=== PATIENT | male | born 1980 | race American Indian/Alaskan Native ===

== ENCOUNTER 2017-04-12 12:25 | Inpatient (IN) | payer MEDICAID ==
[2017-04-12] MEDS ORDERED: Sodium Chloride 0.9% 1,000 ML IV STA (12:56)
[2017-04-12 13:15] LABS: BASO # 0.02 K/mm3 (0.0-2.0); BASO % 0.1 % (0.0-3.0); EOS % 0.1 % (1.5-5.0); GRAN # 12.85 (1.4-6.5); GRAN % 79.7 % (50.0-68.0); HEMATOCRIT 42.5 % (42.0-52.0); LYMPH # 2.7 (1.2-3.4); LYMPH % 16.5 % (22.0-35.0); MEAN CORPUSCULAR HEMOGLOBIN 33.6 pg (25.0-35.0); MEAN CORPUSCULAR HGB CONC 34.6 g/dl (31.0-37.0); MEAN PLATELET VOLUME 10.9 fl (7.0-11.0); MONO # 0.6 (0.1-0.6); MONO % 3.6 % (1.0-6.0); RED CELL DISTRIBUTION WIDTH 12.1 % (11.5-14.5); VENOUS BLOOD GAS BASE EXCESS -12.7 mmol/L (0.0-2.0); WHITE BLOOD COUNT 16.1 10^3/ul (4.5-11.0)
[2017-04-12] MEDS ORDERED: Sodium Chloride 0.9% 2,000 ML IV STA (13:20)
[2017-04-12 13:21] LABS: ALB/GLOB RATIO 1.5 (1.1-1.8); ALKALINE PHOSPHATASE 175 U/L (38-133); ALT/SGPT 45 U/L (7-56); AST/SGOT 43 U/L (15-59); BILIRUBIN,TOTAL 1.1 mg/dL (0.2-1.3); BLOOD UREA NITROGEN 24 mg/dL (7-21); CALCIUM 9.9 mg/dL (8.4-10.5); CARBON DIOXIDE 14 mmol/L (21-33); CHLORIDE 93 mmol/L (98-107); GFR AFRICAN-AMERICAN > 60; LIPASE 33 U/L (23-300); PHOSPHOROUS 4.8 mg/dL (2.5-4.5); POTASSIUM 5.1 mmol/L (3.6-5.0); SODIUM 133 mmol/L (132-148); TOTAL PROTEIN 7.7 g/dL (5.8-8.3)
--- NOTE | 2017-04-12 13:23 | ED PDOC ---
Arrival/HPI - General Chief Complaint: GI Problem Time Seen by Provider: 04/12/17 12:39 Historian: Patient - Critical Care Critical Care Minutes: 30 minutes - History of Present Illness Narrative History of Present Illness (Text): 04/12/17 13:20 A 36 year old male, whose past medical history includes type 1 diabetes, presents to the emergency department complaining of generalized fatigue and multiple episodes of non-bilious non-bloody vomiting since yesterday. Patient reports he forgot his insulin at home yesterday and was unable to take in until later at night. He reports that he had persistent vomiting. Patient notes a mild headache and non-bloody diarrhea but denies any fever, chills, abdominal pain, chest pain, shortness of breath, dizziness or any other complaints. 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 04/12/17 15:36 Time/Duration: Other (Yesterday) Symptom Course: Unchanged Quality: Other Context: Home, Work Past Medical History - Provider Review Nursing Documentation Reviewed: Yes - Infectious Disease Hx of Infectious Diseases: None - Cardiac Hx Cardiac Disorders: No - Pulmonary Hx Respiratory Disorders: No Hx Asthma: No Hx Chronic Obstructive Pulmonary Disease (COPD): No - Neurological Hx Neurological Disorder: No - HEENT Hx HEENT Disorder: No - Renal Hx Renal Disorder: No - Endocrine/Metabolic Hx Endocrine Disorders: Yes Hx Diabetes Mellitus Type 2: Yes - Hematological/Oncological Hx Blood Disorders: No - Integumentary Hx Dermatological Disorder: No - Musculoskeletal/Rheumatological Hx Musculoskeletal Disorders: No - Gastrointestinal Hx Gastrointestinal Disorders: No - Genitourinary/Gynecological Hx Genitourinary Disorders: No - Psychiatric Hx Psychophysiologic Disorder: No Hx Substance Use: No - Surgical History Hx Appendectomy: No - Anesthesia Hx Anesthesia: No Family/Social History - Physician Review Nursing Documentation Reviewed: Yes Family/Social History: No Known Family HX Smoking Status: Current Some Days Smoker Hx Alcohol Use: Yes Frequency of alcohol use: Socially Hx Substance Use: No Allergies/Home Meds Allergies/Adverse Reactions: Allergies No Known Allergies Allergy (Verified 04/12/17 12:39) Home Medications: Home Meds Medication Instructions Recorded Confirmed Insulin Lispro [humALOG] 20 unit SC TID 04/12/17 04/12/17 Review of Systems - Physician Review All systems were reviewed & negative as marked: Yes - Review of Systems Constitutional: Fatigue. absent: Fevers, Night Sweats Respiratory: absent: SOB Cardiovascular: absent: Chest Pain Gastrointestinal: Diarrhea, Vomiting. absent: Abdominal Pain Neurological: Headache. absent: Dizziness Physical Exam Vital Signs Reviewed: Yes Vital Signs Pulse Resp BP Pulse Ox 04/12/17 12:46 86 16 148/76 100 Blood Pressure: Normal Pulse: Regular Respiratory Rate: Normal Appearance: Positive for: Other (Fatigue, dehydrated) Pain Distress: None Mental Status: Positive for: Alert and Oriented X 3 Finger Stick Blood Glucose: 500 - Systems Exam Head: Present: Atraumatic, Normocephalic Pupils: Present: PERRL Extroacular Muscles: Present: EOMI Conjunctiva: Present: Normal Mouth: Present: Dry Pharnyx: No: ERYTHEMA, EXUDATE, TONSILS ENLARGED Neck: Present: Normal Range of Motion Respiratory/Chest: Present: Clear to Auscultation, Good Air Exchange. No: Respiratory Distress, Accessory Muscle Use Cardiovascular: Present: Regular Rate and Rhythm, Normal S1, S2. No: Murmurs Abdomen: Present: Normal Bowel Sounds. No: Tenderness, Distention, Peritoneal Signs Back: Present: Normal Inspection Upper Extremity: Present: Normal Inspection. No: Cyanosis, Edema Lower Extremity: Present: Normal Inspection. No: Edema Neurological: Present: GCS=15, CN II-XII Intact, Speech Normal Skin: Present: Warm, Dry, Normal Color. No: Rashes Psychiatric: Present: Alert, Oriented x 3, Normal Insight, Normal Concentration , Other (fatigue) Medical Decision Making ED Course and Treatment: 04/12/17 13:20 Impression: A 36 year old male with generalized fatigue and multiple episodes of non- bilious non-bloody vomiting since yesterday. Patient was unable to take his insulin yesterday. Patient notes mild headache and non-bloody diarrhea. Differential Diagnosis included but are not limited to: DKA Plan: -- Chest xray -- EKG -- Labs -- Urinalysis -- Tyelnol, Zofran and IV fluids -- Reassess and disposition Progress Notes: EKG shows NSR at 88 BPM with normal intervals, no ST/T changes. Interpreted by me. Report Date : 04/12/2017 14:02:08 Procedure: Chest xray Dictator : Lori Carvalho V. IMPRESSION: No active disease. 04/12/17 13:36 Lab results reviewed with pH of 7.2, PCO2 of 14 with Gap of 31 and sugar over 600 consistent with DKA. Case discussed with ICU attending who accepts patient for admission. Spoke with Dr. Jones who accepts patient to his service. Lactate elevated likely due to DKA. Patient has no other SIRS criteria and cxray negative. 2 liters of NS IVF infusing with insulin bolus and drip written. 04/12/17 15:38 - Lab Interpretations Lab Results: 04/12/17 13:07 04/12/17 13:07 Lab Results 04/12/17 13:07: Sodium 133, Chloride 93 L, Potassium 5.1 H, Carbon Dioxide 14 L , Anion Gap 31 H, BUN 24 H, Creatinine 1.2, Est GFR ( Amer) > 60, Est GFR (Non-Af Amer) > 60, Random Glucose 608 H*, Calcium 9.9, Phosphorus 4.8 H, Magnesium 2.0, Total Bilirubin 1.1, AST 43, ALT 45, Alkaline Phosphatase 175 H, Total Creatine Kinase 205, Troponin I < 0.01, Total Protein 7.7, Albumin 4.6, Globulin 3.1, Albumin/Globulin Ratio 1.5, Lipase 33 04/12/17 13:07: pO2 112 H, VBG pH 7.20 L, VBG pCO2 37.0 L, VBG HCO3 14.5 L, VBG Total CO2 15.6 L, VBG O2 Sat (Calc) 98.9 H, VBG Base Excess -12.7 L, VBG Potassium 5.4 H, Sodium 132.0, Chloride 90.0 L, Glucose 713 H*, Lactate 4.4 H*, FiO2 21.0, Venous Blood Potassium 5.4 H 04/12/17 13:07: WBC 16.1 H, RBC 4.38, Hgb 14.7, Hct 42.5, MCV 97.0, MCH 33.6, MCHC 34.6, RDW 12.1, Plt Count 231, MPV 10.9, Gran % 79.7 H, Lymph % (Auto) 16.5 L, Gaston % (Auto) 3.6, Eos % (Auto) 0.1 L, Baso % (Auto) 0.1, Gran # 12.85 H , Lymph # 2.7, Gaston # 0.6, Eos # 0.0, Baso # 0.02 I have reviewed the lab results: Yes - RAD Interpretation Radiology Orders: 04/12/17 13:20 CHEST PORTABLE [RAD] Stat - Medication Orders Current Medication Orders: Insulin Human Regular 100 (units/ Sodium Chloride) 100 mls @ 8 mls/hr IV .[id number] PRN; 8 UNITS/HR PRN Reason: TITRATE PER MD ORDER Last Admin: 04/12/17 14:08 Dose: 8 mls/hr Metronidazole (Flagyl) 500 mg in 100 mls @ 100 mls/hr IVPB Q8 YENNY PRN Reason: Protocol Ceftriaxone Sodium (Rocephin 1 Gram Ivpb) 1 gm in 100 mls @ 100 mls/hr IVPB DAILY YENNY PRN Reason: Protocol Pantoprazole Sodium (Protonix Inj) 40 mg IVP DAILY YENNY Discontinued Medications Acetaminophen (Tylenol 325mg Tab) 650 mg PO STAT STA Stop: 04/12/17 13:14 Last Admin: 04/12/17 13:37 Dose: 650 mg Sodium Chloride (Sodium Chloride 0.9%) 1,000 mls @ 999 mls/hr IV .Q1H1M STA Stop: 04/12/17 13:56 Last Admin: 04/12/17 13:14 Dose: 999 mls/hr Sodium Chloride (Sodium Chloride 0.9%) 2,000 mls @ 999 mls/hr IV .Q2H1M STA Stop: 04/12/17 15:20 Last Admin: 04/12/17 13:37 Dose: 999 mls/hr Piperacillin Sod/Tazobactam Sod (Zosyn 4.5 Gm In Ns 100ml) 4.5 gm in 100 mls @ 200 mls/hr IVPB STAT STA PRN Reason: Protocol Stop: 04/12/17 15:05 Last Admin: 04/12/17 15:20 Dose: 200 mls/hr Insulin Human Regular (Humulin R) 8 units IV STAT STA Stop: 04/12/17 13:33 Last Admin: 04/12/17 13:47 Dose: 8 units Ondansetron HCl (Zofran Inj) 4 mg IVP STAT STA Stop: 04/12/17 12:57 Last Admin: 04/12/17 13:14 Dose: 4 mg - Scribe Statement The provider has reviewed the documentation as recorded by the Trung Burr Provider Scribe Attestation: All medical record entries made by the Scribe were at my direction and personally dictated by me. I have reviewed the chart and agree that the record accurately reflects my personal performance of the history, physical exam, medical decision making, and the department course for this patient. I have also personally directed, reviewed, and agree with the discharge instructions and disposition. Disposition/Present on Arrival - Present on Arrival Any Indicators Present on Arrival: No History of DVT/PE: No History of Uncontrolled Diabetes: No Urinary Catheter: No History of Decub. Ulcer: No History Surgical Site Infection Following: Orthopedic Procedures - Disposition Have Diagnosis and Disposition been Completed?: Yes Diagnosis: DKA (diabetic ketoacidoses) Disposition: HOSPITALIZED Disposition Time: 12:46 Patient Plan: ICU Condition: CRITICAL
[2017-04-12 13:32] LABS: GLUCOSE,RANDOM 608 mg/dL (70-110)
[2017-04-12] MEDS ORDERED: Insulin Regular 1 UNITS/0.01 ML ML IV STA (13:32)
[2017-04-12] MEDS ORDERED: Insulin Regular 100 UNITS in Sodium Chloride 0.9% 99 ML IV PRN ×2 (13:32→16:42)
[2017-04-12 13:34] LABS: TROPONIN I < 0.01 ng/mL
--- NOTE | 2017-04-12 14:03 | RAD ---
HISTORY: hyperglycemia COMPARISON: No prior. FINDINGS: LUNGS: No active pulmonary disease. PLEURA: No significant pleural effusion identified, no pneumothorax apparent. CARDIOVASCULAR: Normal. OSSEOUS STRUCTURES: No significant abnormalities. VISUALIZED UPPER ABDOMEN: Normal. OTHER FINDINGS: None. IMPRESSION: No active disease.
[2017-04-12] MEDS ORDERED: Piperacill/Tazo 4.5gm in NS 4.5 GM/100 ML BAG IVPB STA (14:36)
[2017-04-12 15:26] LABS: URINE BILIRUBIN NEGATIVE (NEGATIVE); URINE BLOOD SMALL (NEGATIVE); URINE GLUCOSE (UA) >=1000 mg/dL (NEGATIVE); URINE KETONE >=80 mg/dL (NEGATIVE); URINE LEUKOCYTE ESTERASE NEGATIVE Leu/uL (NEGATIVE); URINE PROTEIN NEGATIVE mg/dL (<30 mg/dL); URINE UROBILINOGEN 0.2 E.U./dL (<1 E.U./dL)
[2017-04-12 15:27] LABS: URINE APPEARANCE CLEAR (CLEAR); URINE COLOR YELLOW (YELLOW)
--- NOTE | 2017-04-12 15:30 | CP.CCUPN ---
CCU Subjective - Physician Review Events Since Last Encounter (Free Text): 04/12/17 15:14 36 y/o M who presented with stuporious state and elevated blood sugar. Found to have DKA per the ER staff. Started on Insulin drip after Insulin bolus. IV fluids started 3 L ordered. Pt claims that he has been having abdominal pain, nausea and Vomiting x 2 days and missed his insulin dose x 24 hrs. The patient has been lethargic upon entry and is currently tired. CCU Objective - Physical Exam Head: Positive for: Atraumatic, Normocephalic Pupils: Positive for: PERRL Extroacular Muscles: Positive for: EOMI Conjunctiva: Positive for: Normal Mouth: Positive for: Dry Pharnyx: Negative for: ERYTHEMA, EXUDATE, TONSILS ENLARGED Neck: Positive for: Normal Range of Motion Respiratory/Chest: Positive for: Clear to Auscultation, Good Air Exchange. Negative for: Respiratory Distress, Accessory Muscle Use Cardiovascular: Positive for: Regular Rate and Rhythm, Normal S1, S2. Negative for: Murmurs Abdomen: Positive for: Normal Bowel Sounds. Negative for: Tenderness, Distention, Peritoneal Signs Back: Positive for: Normal Inspection Upper Extremity: Positive for: Normal Inspection. Negative for: Cyanosis, Edema Lower Extremity: Positive for: Normal Inspection. Negative for: Edema Neurological: Positive for: GCS=15, CN II-XII Intact, Speech Normal Skin: Positive for: Warm, Dry, Normal Color. Negative for: Rashes Psychiatric: Positive for: Alert, Oriented x 3, Normal Insight, Normal Concentration, Lethargic, Other (fatigue) - Medications Active Medications: Active Medications Generic Name Dose Route Start Last Admin Trade Name Freq PRN Reason Stop Dose Admin Sodium Chloride 2,000 mls @ 999 mls/hr 04/12/17 13:20 04/12/17 13:37 Sodium Chloride 0.9% IV 04/12/17 15:20 999 mls/hr .Q2H1M STA Administration Insulin Human Regular 100 100 mls @ 8 mls/hr 04/12/17 13:32 04/12/17 14:08 units/ Sodium Chloride IV 8 mls/hr .[id number] PRN Administration TITRATE PER MD ORDER 8 UNITS/HR - Patient Studies EKG/Cardiology Studies: Cardiology / EKG Studies 08/22/17 13:06 EKG [ELECTROCARDIOGRAM] Stat Comment: Reason For Exam: WEAKNESS Fingerstick Blood Sugar Results: 500 Review of Systems - Review of Systems Systems not reviewed;Unavailable: Altered Mental Status Critical Care Progress Note - Ventilator Checklist PUD Prophalyxis: Yes DVT Prophylaxis: Yes Assessment/Plan - Assessment and Plan (Free Text) Assessment: 36 y/o M presented with SIRS w/ Elevated Lactate. Source undetermined , possibly abd source. Elevated Alk Phos. US RUQ. May need Ct abd / pelvis Empiric abx to be started Zosyn 1 st dose given. Continue IV fluids NS 3L now and add as needed. Blood and urine cx sent. DKA protocol started. q 4 bmp, q1 hrs accuchecks and Insulin drip drip started. Replace K as it reaches 4 and change NS to D5W at BS 250. dvt P Heparin sq cc time 65 min
[2017-04-12 15:44] LABS: URINE BACTERIA MOD (NEG)
--- NOTE | 2017-04-12 15:56 | US ---
HISTORY: abdominal pain and elevated alk phos COMPARISON: None. TECHNIQUE: Sonographic evaluation of the abdomen. FINDINGS: LIVER: Measures 18.4 cm. Normal echogenicity of the liver parenchyma. No mass. No intrahepatic bile duct dilatation. GALLBLADDER: Unremarkable. No gallstones. COMMON BILE DUCT: Measures 5.3 mm. No stones. No dilatation. PANCREAS: Unremarkable as visualized. No mass. No ductal dilatation. RIGHT KIDNEY: Measures 11.0 x 4.7 x 5.2cm. Normal echogenicity. No calculus, mass, or hydronephrosis. LEFT KIDNEY: Measures 10.6 x 4.3 x 5.4cm. Normal echogenicity. No calculus, mass, or hydronephrosis. SPLEEN: Normal in size and contour. No mass. AORTA: No aneurysmal dilatation. IVC: Unremarkable. OTHER FINDINGS: None. IMPRESSION: Mild hepatomegaly. Otherwise unremarkable exam
--- NOTE | 2017-04-12 16:01 | CP.PCM.HP ---
<JESSICA ALVAREZ - Last Filed: 04/12/17 15:41> History of Present Illness - History of Present Illness History of Present Illness: CC: Abdominal pain, nausea, vomiting HPI: Pt is a 36 yo M with PMHx of DM type 1 who complains of a 2 day history of nausea, NBNB vomiting x3-4 episodes, and abdominal pain. Pt also reports polydipsia, polyuria, diarrhea, SOB, and chills x 1 day. Pt is currently on Humalog 20 units TID and Basaglar 35 units at bedtime, but did not take any of his insulin for the past 24 hrs because forgot them at home when he went to work. Pt states that he checks his blood glucose at home which is generally around 120 in the mornings and varies throughout the day from the high 100's to low 200's. Pt was diagnosed with DM type I 9-years ago and denies any history of DKA. Pt was found to be lethargic on interview/examination. Pt denies CP, SOB , fever, melena, BRBPR, dysuria, or hematuria. 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 Willy Paz Council Member: Dr. Hadley Present on Admission - Present on Admission Any Indicators Present on Admission: No Review of Systems - Review of Systems All systems: reviewed and no additional remarkable complaints except (12 Point ROS negative other than what is stated in HPI) Past Patient History - Infectious Disease Hx of Infectious Diseases: None - Past Social History Smoking Status: Current Some Days Smoker - CARDIAC Hx Cardiac Disorders: No - PULMONARY Hx Respiratory Disorders: No Hx Asthma: No Hx Chronic Obstructive Pulmonary Disease (COPD): No - NEUROLOGICAL Hx Neurological Disorder: No - HEENT Hx HEENT Problems: No - RENAL Hx Chronic Kidney Disease: No - ENDOCRINE/METABOLIC Hx Endocrine Disorders: Yes Hx Diabetes Mellitus Type 2: Yes - HEMATOLOGICAL/ONCOLOGICAL Hx Blood Disorders: No - INTEGUMENTARY Hx Dermatological Problems: No - MUSCULOSKELETAL/RHEUMATOLOGICAL Hx Musculoskeletal Disorders: No - GASTROINTESTINAL Hx Gastrointestinal Disorders: No - GENITOURINARY/GYNECOLOGICAL Hx Genitourinary Disorders: No - PSYCHIATRIC Hx Psychophysiologic Disorder: No Hx Substance Use: No - SURGICAL HISTORY Hx Appendectomy: No - ANESTHESIA Hx Anesthesia: No Meds Allergies/Adverse Reactions: Allergies Allergy/AdvReac Type Severity Reaction Status Date / Time No Known Allergies Allergy Verified 04/12/17 12:39 Physical Exam - Constitutional Additional comments: Lethargic - Head Exam Head Exam: ATRAUMATIC, NORMOCEPHALIC - Eye Exam Eye Exam: EOMI, PERRL Additional comments: No conjunctival pallor - ENT Exam ENT Exam: Mucous Membranes Dry - Neck Exam Neck exam: Positive for: Full Rom. Negative for: Lymphadenopathy, Tenderness, Thyromegaly - Respiratory Exam Respiratory Exam: Clear to Auscultation Bilateral. absent: Rales, Rhonchi, Wheezes - Cardiovascular Exam Cardiovascular Exam: RRR, +S1, +S2. absent: Gallop, Rubs, Systolic Murmur - GI/Abdominal Exam GI & Abdominal Exam: Soft, Tenderness. absent: Distended, Guarding, Organomegaly, Rebound, Rigid - Extremities Exam Extremities exam: Positive for: normal inspection - Back Exam Back exam: NORMAL INSPECTION - Neurological Exam Neurological exam: Alert, Oriented x3 - Skin Skin Exam: Dry, Intact, Normal Color, Warm Results - Vital Signs Recent Vital Signs: Last Vital Signs Temp Pulse 86 04/12/17 12:46 Resp 16 04/12/17 12:46 BP 148/76 04/12/17 12:46 Pulse Ox 100 04/12/17 12:46 - Labs Result Diagrams: 04/12/17 13:07 04/12/17 13:07 Labs: Laboratory Results - last 24 hr 04/12/17 15:08 Urine Color Yellow Urine Appearance Clear Urine pH 6.0 Ur Specific Mccoll 1.015 Urine Protein Negative Urine Glucose (UA) >=1000 Urine Ketones >=80 Urine Blood Small H Urine Nitrate Negative Urine Bilirubin Negative Urine Urobilinogen 0.2 Ur Leukocyte Esterase Negative Assessment & Plan - Assessment and Plan (Free Text) Assessment: 36 yo M with PMHx DM type I admitted for evaluation and treatment for diabetic ketoacidosis. Plan: 1. Diabetic Ketoacidosis - Admitted inpatient to ICU - Anion Gap 26, Lactate 4.4, pH 7.2, HCO3 14.5 - Insulin drip at 8 units/hr - NS 3L bolus - Glucose 608 and K 5.1 on admission - Check glucose Q4H - Check potassium Q4H, monitor for hypokalemia - Zofran PRN for nausea/vomiting - NPO - F/u drug screen, ETOH level, Lactic acid - Endocrine consulted 2. Leukocytosis - WBC 16.1, cont to trend - UA positive for Trichomonas - Abd showed mild hepatomegaly; CXR negative - Lipase 33 - Flagyl 500 mg IVPB Q8H covers trichomonas - Zosyn x1 in ED - Ceftriaxone 1 gm IVPB daily - F/u blood and urine cultures GI/DVT PPx - Protonix - SCDs Pt seen and discussed in detail with Dr. Jones. <Evelyn Jones - Last Filed: 04/12/17 16:42> Results - Vital Signs Recent Vital Signs: Last Vital Signs Temp Pulse 86 04/12/17 12:46 Resp 16 04/12/17 12:46 BP 148/76 04/12/17 12:46 Pulse Ox 100 04/12/17 12:46 - Labs Result Diagrams: 04/12/17 13:07 04/12/17 13:07 Labs: Laboratory Results - last 24 hr 04/12/17 04/12/17 14:13 15:08 POC Glucose (mg/dL) 413 H* Urine Color Yellow Urine Appearance Clear Urine pH 6.0 Ur Specific Mccoll 1.015 Urine Protein Negative Urine Glucose (UA) >=1000 Urine Ketones >=80 Urine Blood Small H Urine Nitrate Negative Urine Bilirubin Negative Urine Urobilinogen 0.2 Ur Leukocyte Esterase Negative Urine RBC 1 - 3 Urine WBC 2 - 5 Ur Epithelial Cells 3 - 4 Urine Bacteria Mod Urine Other Trichomonas Attending/Attestation - Attestation I have personally seen and examined this patient.: Yes I have fully participated in the care of the patient.: Yes I have reviewed all pertinent clinical information: Yes Notes (Text): 04/12/17 16:38 36 year old male with past medical history of type 1 diabetes who presents with complaint of abdominal pain with nausea/vomiting after not taking his insulin for the past 1 day. He was found to be in DKA with anion gap of 26. Will admit to ICU. Continue with iv fluids and insulin drip. Will obtain serial labs and fingersticks. Endocrinology evaluation was also requested. GI complaints and leukocytosis likely secondary to above. CXR was negative. UA shows trichomonas. Patient is started on empiric antibiotics for now. Abdominal ultrasound showed mild hepatomegaly. Will monitor clinically and follow up on cultures. Evelyn Jones MD Hospitalist.
[2017-04-12 16:58] LABS: VENOUS BLOOD GAS BASE EXCESS -6.3 mmol/L (0.0-2.0)
[2017-04-12] MEDS ORDERED: cefTRIAXone 1 gm 1 GM/100 ML BAG IVPB SCH (17:00)
[2017-04-12] MEDS: cefTRIAXone 1 gm in NS 100ml IVPB SCH (17:22)
[2017-04-12] MEDS ORDERED: Sodium Chloride 0.9% 1,000 ML IV SCH (17:30)
[2017-04-12] MEDS ORDERED: ALUMINUM HYDROXIDE PO PRN (18:33)
[2017-04-12] MEDS ORDERED: MAGNESIUM CARBONATE PO PRN (18:33)
[2017-04-12 19:05] LABS: BLOOD UREA NITROGEN 21 mg/dL (7-21); CALCIUM 8.8 mg/dL (8.4-10.5); CARBON DIOXIDE 19 mmol/L (21-33); CHLORIDE 107 mmol/L (98-107); GFR AFRICAN-AMERICAN > 60; GLUCOSE,RANDOM 172 mg/dL (70-110); POTASSIUM 4.1 mmol/L (3.6-5.0); SODIUM 139 mmol/L (132-148)
--- NOTE | 2017-04-12 19:10 | CARD ---
APPROVED REPORT EKG Measurement Heart [id number] <Conclusion> Normal sinus rhythm Right atrial enlargement Borderline ECG
[2017-04-12 19:19] VITALS: BMI 23.6
[2017-04-12] MEDS ORDERED: Pneumococcal 23-Valent Vaccine IM ONE (19:19)
[2017-04-12] MEDS ORDERED: Insulin Detemir 100 units/ml Vial (Levemir) SC ONE (19:21)
[2017-04-12] MEDS: Dextrose 5%/0.9% NS 1,000 ML IV SCH (19:55)
[2017-04-12] MEDS: Potassium Chloride 40 mEq/30 ml LIQ UD PO ONE ×2 (20:29→22:25)
[2017-04-12] MEDS: Alum-Mag Hydrox-Simethicone Susp (30 mL) PO PRN (20:43)
[2017-04-12] MEDS ORDERED: Potassium Chloride 20 mEq ER Tab PO ONE (21:16)
[2017-04-12] MEDS ORDERED: Insulin Reg-HIGH-Coverage SC SCH (22:00)
[2017-04-12 22:11] LABS: BLOOD UREA NITROGEN 18 mg/dL (7-21); CALCIUM 8.6 mg/dL (8.4-10.5); CARBON DIOXIDE 22 mmol/L (21-33); CHLORIDE 106 mmol/L (95-110); GFR AFRICAN-AMERICAN > 60; GLUCOSE,RANDOM 131 mg/dL (70-110); POTASSIUM 4.4 mmol/L (3.6-5.0); SODIUM 137 mmol/L (132-148)
[2017-04-12] MEDS: metroNIDAZOLE IV 500 mg/100 ml 500 MG/100 ML BAG IVPB SCH (22:27)
[2017-04-12] MEDS ORDERED: Insulin Detemir 100 units/ml Vial (Levemir) SC STA (22:30)
[2017-04-13] MEDS: Alum-Mag Hydrox-Simethicone Susp (30 mL) PO PRN ×2 (00:46→05:00)
[2017-04-13 02:28] LABS: CALCIUM 8.5 mg/dL (8.4-10.5); CARBON DIOXIDE 25 mmol/L (21-33); CHLORIDE 107 mmol/L (95-110); GLUCOSE,RANDOM 111 mg/dL (70-110); POTASSIUM 3.7 mmol/L (3.6-5.0); SODIUM 137 mmol/L (132-148)
--- NOTE | 2017-04-13 02:30 | CON ---
ENDOCRINOLOGY CONSULTATION LOCATION: [facility]U 128, room 6. HISTORY OF PRESENT ILLNESS: This is a 56-year-old male with known history of type 1 insulin-dependent diabetes, presenting here with intractable nausea, dyspepsia and vomiting and upper abdominal pain and is now being referred for diabetic evaluation because of supervening diabetic ketoacidosis and dehydration. PAST MEDICAL HISTORY: History of type 1 insulin-dependent diabetes on a combination of Humalog given as 20 units subcu t.i.d. before meals with Basaglar given as 35 units at bedtime daily. He apparently forgot his insulin regiment at home and was unable to administer his insulin dosing at work and developed progressively worsening nausea, dyspepsia and vomiting episodes with upper abdominal pain prompting this ER consult and subsequent admission. History of hypertension and dyslipidemia. FAMILY HISTORY: Positive for diabetes and hypertension. SOCIAL HISTORY: The patient has supportive family, smoke a few cigarettes a day and drinks alcohol socially. 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 REVIEW OF SYSTEMS: As mentioned above. Admits to generalized body weakness with easy fatigability and tiredness and suboptimal energy level. Also admits to progressive bouts of dizziness and lightheadedness, worse on the day of the admission. No chest pains, palpitations or PND. His oral intake is variable with nausea, dyspepsia and intractable vomiting episodes with supervening diarrhea and upper abdominal pain. Also admits to progressive polyuria, nocturia and polydipsia, worse on the day of admission. PHYSICAL EXAMINATION: GENERAL: This is an average built male in no apparent distress. VITAL SIGNS: Blood pressure of 140/80, pulse of 70 beats per minute and regular, temperature 98, respirations 20, height is 5 feet 9 inches and weight is 160 pounds. HEENT: Head is normocephalic. Eyes are anicteric with pink conjunctivae. Funduscopy not possible at this time. Ears, nose, and throat are otherwise normal. NECK: Supple. Thyroid gland is normal sized. No carotid bruits or any cervical adenopathy. CARDIOPULMONARY: Adynamic precordium. S1 and S2 is rapid and regular. LUNGS: Shows carotid rhonchi. ABDOMEN: Flat and soft with active bowel sounds. EXTREMITIES: No peripheral edema. Pulses are +2 bilaterally. LABORATORY DATA: His initial chemistry showed a BUN of 24, sodium 133, potassium 5.1, chloride 93, CO2 is 14, glucose is 608 and creatinine is 1.2. The subsequent glucose level is 413 mg/dL. ASSESSMENT: This is a 36-year-old male with uncontrolled and decompensated type 1 insulin-dependent diabetes presenting here with diabetic ketoacidosis an dehydration related to recent drug omission of his insulin regimen as noted. PLAN: Plan of management as discussed with the patient and staff. We will continue the insulin drip infusion with hourly fingerstick glucose testing and also hourly dose titration of his insulin drip infusion as given. We will continue intensive insulin therapy and at least above 18 to 20 overnight as expected. We will also continue the vigorous IV hydration to replenish the lost fluid and electrolytes as noted. We will obtain serum chemistries and supplement accordingly as needed. We will also initiate dietary education and dietary instructions at the time of this admission. We will follow and advise accordingly. Lizy Mustafa MD
[2017-04-13 02:34] LABS: BLOOD UREA NITROGEN 19 mg/dL (7-21); GFR AFRICAN-AMERICAN > 60
--- NOTE | 2017-04-13 03:00 | HP ---
HISTORY OF PRESENT ILLNESS: I am on-call for the [facility] and they called me down to take a look at him. He is not doing well. He is going to the intensive care unit. He is a 36-year-old man who had nausea, vomiting, 3 to 4 episodes of abdominal pain, increase in urination, diarrhea, shortness of breath and chills that has been going on for about a day, 24 hours. He is a diabetic. He has done this before. He did not take any insulin for the past 24 hours, he forgot when he went to work and he felt that the blood sugars went high and he ended up being in the ER with high blood sugars and DKA. PAST MEDICAL HISTORY: History of type 1 diabetes. PAST SURGICAL HISTORY: He denies any surgical history. MEDICATIONS: He takes Humulin 20 units 3 times a day and Basaglar 35 units at bedtime. ALLERGIES: NO KNOWN DRUG ALLERGIES. FAMILY HISTORY: Grandfather had diabetes. SOCIAL HISTORY: He smokes cigarettes. He smokes marijuana. He drinks alcohol. 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 He lives in [place]. He is not feeling well. REVIEW OF SYSTEMS: No acute vision issues or hearing issues. No sore throat. No neck pain. No chest pain or palpitations. No shortness of breath, coughing or mucus. He does have abdominal pain and nauseousness. He has vomiting. He has some diarrhea. No back pain. No anxiety or depression. No numbness or chills. No weakness in the legs. No swelling. PHYSICAL EXAMINATION: VITAL SIGNS: He has a 98.6 temp, 85 pulse, 126/64 blood pressure, 18 respiratory rate and 100% O2 sat on room air. HEENT: Head is atraumatic and normocephalic. Extraocular muscles are intact. Pupils equal and reactive to light and accommodation. Throat is moist. NECK: Supple. HEART: Regular rate, normal S1 and S2. LUNGS: Clear to auscultation bilaterally. No rhonchi, rales or wheezes. ABDOMEN: Soft. Mild diffuse discomfort. No guarding. No rebound. No CVA tenderness. No palpable masses. EXTREMITIES: No edema. NEUROLOGIC: He is alert and oriented x3. SKIN: Intact. No rashes or ulcers. NODES: Thyroid midline. No palpable or appreciable lymphadenopathy. LABORATORY DATA: Positive marijuana and his urine toxicology, his urine has small blood, positive trichomonas and moderate bacteria. He had 139 sodium; potassium 4.1; BUN was 21; creatinine 1; GFR was greater than 60; sugar is down to 102, it was as high as 608, then 413, then 365. His total bili is 1.1, AST is 43, ALT is 45 and alk phos 175. Troponin is less than 0.01. Total protein 7.1. Lipase is 33. Sodium is 133, BUN is 24 and creatinine 1.2. He is having 16.1 white count, 14.7 hemoglobin, 42.5 hematocrit and 231 platelets. His pH was 7.2 when he came in. He has multiple issues. Chest x-ray was okay, no active disease. He had mild hepatomegaly on chest x-ray. His EKG has normal sinus rhythm and right atrial enlargement. He has multiple problems. He is treated for diabetic ketoacidosis, leucocytosis and urinary tract infection with trichomonas. He is a diabetic. He will have consults with endocrinology and the certified flight instructor. He is on IV fluids, IV metronidazole, past potassium replacement and Rocephin. Guero Gupta DO
[2017-04-13] MEDS: metroNIDAZOLE IV 500 mg/100 ml 500 MG/100 ML BAG IVPB SCH ×3 (05:01→22:00)
[2017-04-13] MEDS ORDERED: Dextrose 50% SYRINGE Inj (50 ml) ONE (06:04)
[2017-04-13] MEDS ORDERED: Dextrose 50% SYRINGE Inj (50 ml) IVP ONE (06:08)
[2017-04-13] MEDS ORDERED: Potassium Chloride 20 mEq ER Tab PO ONE (06:32)
[2017-04-13 06:37] LABS: ALB/GLOB RATIO 1.1 (1.1-1.8); ALKALINE PHOSPHATASE 102 U/L (38-133); ALT/SGPT 36 U/L (7-56); AST/SGOT 31 U/L (15-59); BILIRUBIN,TOTAL 0.6 mg/dL (0.2-1.3); BLOOD UREA NITROGEN 16 mg/dL (7-21); CALCIUM 8.5 mg/dL (8.4-10.5); CARBON DIOXIDE 25 mmol/L (21-33); CHLORIDE 109 mmol/L (98-107); CHOLESTEROL 111 mg/dL (130-200); GFR AFRICAN-AMERICAN > 60; GLUCOSE,RANDOM 61 mg/dL (70-110); MAGNESIUM 2.2 mg/dL (1.7-2.2); PHOSPHOROUS 2.5 mg/dL (2.5-4.5); POTASSIUM 3.5 mmol/L (3.6-5.0); SODIUM 141 mmol/L (132-148)
[2017-04-13 06:44] LABS: BASO # 0.02 K/mm3 (0.0-2.0); BASO % 0.2 % (0.0-3.0); EOS # 0.1 (0.0-0.7); EOS % 0.5 % (1.5-5.0); GRAN # 8.91 (1.4-6.5); GRAN % 72.1 % (50.0-68.0); HEMATOCRIT 33.4 % (42.0-52.0); LYMPH # 2.7 (1.2-3.4); LYMPH % 21.9 % (22.0-35.0); MEAN CELL VOLUME 94.9 fl (80.0-105.0); MEAN CORPUSCULAR HEMOGLOBIN 32.4 pg (25.0-35.0); MEAN CORPUSCULAR HGB CONC 34.1 g/dl (31.0-37.0); MEAN PLATELET VOLUME 10.3 fl (7.0-11.0); MONO # 0.7 (0.1-0.6); MONO % 5.3 % (1.0-6.0); RED CELL DISTRIBUTION WIDTH 11.9 % (11.5-14.5); WHITE BLOOD COUNT 12.4 10^3/ul (4.5-11.0)
[2017-04-13] MEDS: Dextrose 5%/0.9% NS 1,000 ML IV SCH ×2 (07:42→20:00)
[2017-04-13] MEDS: Insulin Lispro 1 UNITS/0.01 ML SC SCH ×3 (08:00→16:00)
[2017-04-13] MEDS: Insulin Lispro (humaLOG) LOW Coverage SC SCH ×4 (08:00→22:48)
[2017-04-13 08:25] VITALS: O2SAT 100
[2017-04-13] MEDS: Benzocaine/Menthol (Cepacol) Lozenge MT PRN ×2 (09:12→17:51)
[2017-04-13] MEDS ORDERED: cefTRIAXone 1 gm 1 GM/100 ML BAG IVPB SCH (10:00)
--- NOTE | 2017-04-13 10:09 | CP.PCM.CON ---
History of Present Illness - History of Present Illness History of Present Illness: 36 year old male with PMH of DM type 1 came in to [facility] because of nausea, vomiting, abdominal discomfort. The patient was found to be in diabetic ketoacidosis and is in the ICU being treated with insulin and fluids. He was also noted to have sore throat and pain on swallowing. UA showed Trichomonas in the urine and the patient states he has sexual partners. He denies headache or dizziness, no fever or chills, nausea has improved currently , no abdominal pain currently, no dysuria or penile discharge, no diarrhea, no chest pain, no SOB, no cough. Infectious diseases consult is requested to further evaluate and manage. Review of Systems - Review of Systems All systems: reviewed and no additional remarkable complaints except (as per HPI ) Past Patient History - Infectious Disease Hx of Infectious Diseases: None - Past Social History Smoking Status: Light Smoker < 10 Cigarettes Daily - CARDIAC Hx Cardiac Disorders: No - PULMONARY Hx Respiratory Disorders: No Hx Asthma: No Hx Chronic Obstructive Pulmonary Disease (COPD): No - NEUROLOGICAL Hx Neurological Disorder: No - HEENT Hx HEENT Problems: Yes (eyeglasses) - RENAL Hx Chronic Kidney Disease: No - ENDOCRINE/METABOLIC Hx Endocrine Disorders: Yes Hx Diabetes Mellitus Type 1: Yes (dx 9 yrs ago) - HEMATOLOGICAL/ONCOLOGICAL Hx Blood Disorders: No - INTEGUMENTARY Hx Dermatological Problems: No - MUSCULOSKELETAL/RHEUMATOLOGICAL Hx Falls: No - GASTROINTESTINAL Hx Gastrointestinal Disorders: No - GENITOURINARY/GYNECOLOGICAL Hx Genitourinary Disorders: No - PSYCHIATRIC Hx Substance Use: No - SURGICAL HISTORY Hx Appendectomy: No - ANESTHESIA Hx Anesthesia: No Meds Allergies/Adverse Reactions: Allergies Allergy/AdvReac Type Severity Reaction Status Date / Time No Known Allergies Allergy Verified 04/12/17 12:39 - Medications Medications: Current Medications Al Hydrox/Mg Hydrox/Simethicone (Maalox Plus 30 Ml) 30 ml PO Q4H PRN PRN Reason: Indigestion / Heartburn Last Admin: 04/13/17 05:00 Dose: 30 ml Benzonatate (Tessalon Perles) 100 mg PO TID YENNY Metronidazole (Flagyl) 500 mg in 100 mls @ 100 mls/hr IVPB Q8 YENNY PRN Reason: Protocol Last Admin: 04/13/17 05:01 Dose: 100 mls/hr Ceftriaxone Sodium (Rocephin 1 Gram Ivpb) 1 gm in 100 mls @ 100 mls/hr IVPB 1700 YENNY Last Admin: 04/12/17 17:22 Dose: 100 mls/hr Dextrose/Sodium Chloride (Dextrose 5%/0.9% Ns 1000 Ml) 1,000 mls @ 100 mls/hr IV .Q10H [facility] Last Admin: 04/13/17 07:42 Dose: 100 mls/hr Insulin Detemir (Levemir) 20 unit SC HS [facility] Insulin Human Lispro (Humalog Low) 0 units SC ACHS [facility] PRN Reason: Protocol Last Admin: 04/13/17 08:00 Dose: Not Given Insulin Human Lispro (Humalog) 8 units SC AC [facility] Last Admin: 04/13/17 08:00 Dose: Not Given Pantoprazole Sodium (Protonix Inj) 40 mg IVP DAILY [facility] Physical Exam - Constitutional Appears: Non-toxic, No Acute Distress - Head Exam Head Exam: NORMAL INSPECTION - ENT Exam ENT Exam: Mucous Membranes Moist Additional comments: some pharyngeal swelling noted - Neck Exam Neck exam: Negative for: Meningismus - Respiratory Exam Respiratory Exam: Decreased Breath Sounds - Cardiovascular Exam Cardiovascular Exam: +S1, +S2 - GI/Abdominal Exam GI & Abdominal Exam: Soft. absent: Tenderness Results - Vital Signs Recent Vital Signs: Last Vital Signs Temp 98.7 F 04/13/17 05:00 Pulse 59 L 04/13/17 08:00 Resp 14 04/13/17 08:00 BP 112/66 04/13/17 07:00 Pulse Ox 100 04/13/17 08:00 - Labs Result Diagrams: 04/13/17 05:30 04/13/17 06:00 Labs: Laboratory Results - last 24 hr 04/12/17 04/12/17 04/12/17 14:13 15:08 15:58 WBC RBC Hgb Hct MCV MCH MCHC RDW Plt Count MPV Gran % Lymph % (Auto) Jenkins % (Auto) Eos % (Auto) Baso % (Auto) Gran # Lymph # Jenkins # Eos # Baso # pO2 VBG pH VBG pCO2 VBG HCO3 VBG Total CO2 VBG O2 Sat (Calc) VBG Base Excess VBG Potassium Sodium Chloride Glucose Lactate FiO2 Potassium Carbon Dioxide Anion Gap BUN Creatinine Est GFR ( Amer) Est GFR (Non-Af Amer) POC Glucose (mg/dL) 413 H* 365 H Random Glucose Lactic Acid Calcium Phosphorus Magnesium Total Bilirubin AST ALT Alkaline Phosphatase Total Protein Albumin Globulin Albumin/Globulin Ratio Triglycerides Cholesterol LDL Cholesterol Direct HDL Cholesterol TSH 3rd Generation Venous Blood Potassium Urine Color Yellow Urine Appearance Clear Urine pH 6.0 Ur Specific [place] 1.015 Urine Protein Negative Urine Glucose (UA) >=1000 Urine Ketones >=80 Urine Blood Small H Urine Nitrate Negative Urine Bilirubin Negative Urine Urobilinogen 0.2 Ur Leukocyte Esterase Negative Urine RBC 1 - 3 Urine WBC 2 - 5 Ur Epithelial Cells 3 - 4 Urine Bacteria Mod Urine Other Trichomonas Urine Opiates Screen Urine Methadone Screen Ur Barbiturates Screen Ur Phencyclidine Scrn Ur Amphetamines Screen U Benzodiazepines Scrn U Oth Cocaine Metabols U Cannabinoids Screen Alcohol, Quantitative 04/12/17 04/12/17 04/12/17 16:50 16:58 17:48 WBC RBC Hgb Hct MCV MCH MCHC RDW Plt Count MPV Gran % Lymph % (Auto) Jenkins % (Auto) Eos % (Auto) Baso % (Auto) Gran # Lymph # Jenkins # Eos # Baso # pO2 35 VBG pH 7.30 L VBG pCO2 40.0 VBG HCO3 19.7 L VBG Total CO2 20.9 L VBG O2 Sat (Calc) 71.0 H VBG Base Excess -6.3 L VBG Potassium 4.1 Sodium 138.0 Chloride 104.0 Glucose 282 H Lactate 3.1 H FiO2 21.0 Potassium Carbon Dioxide Anion Gap BUN Creatinine Est GFR ( Amer) Est GFR (Non-Af Amer) POC Glucose (mg/dL) 312 H 221 H Random Glucose Lactic Acid Calcium Phosphorus Magnesium Total Bilirubin AST ALT Alkaline Phosphatase Total Protein Albumin Globulin Albumin/Globulin Ratio Triglycerides Cholesterol LDL Cholesterol Direct HDL Cholesterol TSH 3rd Generation Venous Blood Potassium 4.1 Urine Color Urine Appearance Urine pH Ur Specific [place] Urine Protein Urine Glucose (UA) Urine Ketones Urine Blood Urine Nitrate Urine Bilirubin Urine Urobilinogen Ur Leukocyte Esterase Urine RBC Urine WBC Ur Epithelial Cells Urine Bacteria Urine Other Urine Opiates Screen Urine Methadone Screen Ur Barbiturates Screen Ur Phencyclidine Scrn Ur Amphetamines Screen U Benzodiazepines Scrn U Oth Cocaine Metabols U Cannabinoids Screen Alcohol, Quantitative 04/12/17 04/12/17 04/12/17 18:16 18:16 18:16 WBC RBC Hgb Hct MCV MCH MCHC RDW Plt Count MPV Gran % Lymph % (Auto) Jenkins % (Auto) Eos % (Auto) Baso % (Auto) Gran # Lymph # Jenkins # Eos # Baso # pO2 VBG pH VBG pCO2 VBG HCO3 VBG Total CO2 VBG O2 Sat (Calc) VBG Base Excess VBG Potassium Sodium 139 Chloride 107 Glucose Lactate FiO2 Potassium 4.1 Carbon Dioxide 19 L Anion Gap 17 BUN 21 Creatinine 1.0 Est GFR ( Amer) > 60 Est GFR (Non-Af Amer) > 60 POC Glucose (mg/dL) Random Glucose 172 H Lactic Acid 1.9 Calcium 8.8 Phosphorus Magnesium Total Bilirubin AST ALT Alkaline Phosphatase Total Protein Albumin Globulin Albumin/Globulin Ratio Triglycerides Cholesterol LDL Cholesterol Direct HDL Cholesterol TSH 3rd Generation Venous Blood Potassium Urine Color Urine Appearance Urine pH Ur Specific [place] Urine Protein Urine Glucose (UA) Urine Ketones Urine Blood Urine Nitrate Urine Bilirubin Urine Urobilinogen Ur Leukocyte Esterase Urine RBC Urine WBC Ur Epithelial Cells Urine Bacteria Urine Other Urine Opiates Screen Urine Methadone Screen Ur Barbiturates Screen Ur Phencyclidine Scrn Ur Amphetamines Screen U Benzodiazepines Scrn U Oth Cocaine Metabols U Cannabinoids Screen Alcohol, Quantitative < 10 04/12/17 04/12/17 04/12/17 18:51 19:15 20:21 WBC RBC Hgb Hct MCV MCH MCHC RDW Plt Count MPV Gran % Lymph % (Auto) Jenkins % (Auto) Eos % (Auto) Baso % (Auto) Gran # Lymph # Jenkins # Eos # Baso # pO2 VBG pH VBG pCO2 VBG HCO3 VBG Total CO2 VBG O2 Sat (Calc) VBG Base Excess VBG Potassium Sodium Chloride Glucose Lactate FiO2 Potassium Carbon Dioxide Anion Gap BUN Creatinine Est GFR ( Amer) Est GFR (Non-Af Amer) POC Glucose (mg/dL) 199 H 112 H Random Glucose Lactic Acid Calcium Phosphorus Magnesium Total Bilirubin AST ALT Alkaline Phosphatase Total Protein Albumin Globulin Albumin/Globulin Ratio Triglycerides Cholesterol LDL Cholesterol Direct HDL Cholesterol TSH 3rd Generation Venous Blood Potassium Urine Color Urine Appearance Urine pH Ur Specific [place] Urine Protein Urine Glucose (UA) Urine Ketones Urine Blood Urine Nitrate Urine Bilirubin Urine Urobilinogen Ur Leukocyte Esterase Urine RBC Urine WBC Ur Epithelial Cells Urine Bacteria Urine Other Urine Opiates Screen Negative Urine Methadone Screen Negative Ur Barbiturates Screen Negative Ur Phencyclidine Scrn Negative Ur Amphetamines Screen Negative U Benzodiazepines Scrn Negative U Oth Cocaine Metabols Negative U Cannabinoids Screen Positive H Alcohol, Quantitative 04/12/17 04/12/17 04/12/17 21:01 21:59 22:04 WBC RBC Hgb Hct MCV MCH MCHC RDW Plt Count MPV Gran % Lymph % (Auto) Jenkins % (Auto) Eos % (Auto) Baso % (Auto) Gran # Lymph # Jenkins # Eos # Baso # pO2 VBG pH VBG pCO2 VBG HCO3 VBG Total CO2 VBG O2 Sat (Calc) VBG Base Excess VBG Potassium Sodium 137 Chloride 106 Glucose Lactate FiO2 Potassium 4.4 Carbon Dioxide 22 Anion Gap 13 BUN 18 Creatinine 1.0 Est GFR ( Amer) > 60 Est GFR (Non-Af Amer) > 60 POC Glucose (mg/dL) 102 125 H Random Glucose 131 H Lactic Acid Calcium 8.6 Phosphorus Magnesium Total Bilirubin AST ALT Alkaline Phosphatase Total Protein Albumin Globulin Albumin/Globulin Ratio Triglycerides Cholesterol LDL Cholesterol Direct HDL Cholesterol TSH 3rd Generation Venous Blood Potassium Urine Color Urine Appearance Urine pH Ur Specific [place] Urine Protein Urine Glucose (UA) Urine Ketones Urine Blood Urine Nitrate Urine Bilirubin Urine Urobilinogen Ur Leukocyte Esterase Urine RBC Urine WBC Ur Epithelial Cells Urine Bacteria Urine Other Urine Opiates Screen Urine Methadone Screen Ur Barbiturates Screen Ur Phencyclidine Scrn Ur Amphetamines Screen U Benzodiazepines Scrn U Oth Cocaine Metabols U Cannabinoids Screen Alcohol, Quantitative 04/12/17 04/13/17 04/13/17 23:58 02:05 02:07 WBC RBC Hgb Hct MCV MCH MCHC RDW Plt Count MPV Gran % Lymph % (Auto) Jenkins % (Auto) Eos % (Auto) Baso % (Auto) Gran # Lymph # Jenkins # Eos # Baso # pO2 VBG pH VBG pCO2 VBG HCO3 VBG Total CO2 VBG O2 Sat (Calc) VBG Base Excess VBG Potassium Sodium 137 Chloride 107 Glucose Lactate FiO2 Potassium 3.7 Carbon Dioxide 25 Anion Gap 9 L BUN 19 Creatinine 1.0 Est GFR ( Amer) > 60 Est GFR (Non-Af Amer) > 60 POC Glucose (mg/dL) 140 H 122 H Random Glucose 111 H Lactic Acid Calcium 8.5 Phosphorus Magnesium Total Bilirubin AST ALT Alkaline Phosphatase Total Protein Albumin Globulin Albumin/Globulin Ratio Triglycerides Cholesterol LDL Cholesterol Direct HDL Cholesterol TSH 3rd Generation Venous Blood Potassium Urine Color Urine Appearance Urine pH Ur Specific [place] Urine Protein Urine Glucose (UA) Urine Ketones Urine Blood Urine Nitrate Urine Bilirubin Urine Urobilinogen Ur Leukocyte Esterase Urine RBC Urine WBC Ur Epithelial Cells Urine Bacteria Urine Other Urine Opiates Screen Urine Methadone Screen Ur Barbiturates Screen Ur Phencyclidine Scrn Ur Amphetamines Screen U Benzodiazepines Scrn U Oth Cocaine Metabols U Cannabinoids Screen Alcohol, Quantitative 04/13/17 04/13/17 04/13/17 04:02 04:34 05:21 WBC RBC Hgb Hct MCV MCH MCHC RDW Plt Count MPV Gran % Lymph % (Auto) [place] % (Auto) Eos % (Auto) Baso % (Auto) Gran # Lymph # [place] # Eos # Baso # pO2 VBG pH VBG pCO2 VBG HCO3 VBG Total CO2 VBG O2 Sat (Calc) VBG Base Excess VBG Potassium Sodium Chloride Glucose Lactate FiO2 Potassium Carbon Dioxide Anion Gap BUN Creatinine Est GFR ( Amer) Est GFR (Non-Af Amer) POC Glucose (mg/dL) 64 L 67 80 Random Glucose Lactic Acid Calcium Phosphorus Magnesium Total Bilirubin AST ALT Alkaline Phosphatase Total Protein Albumin Globulin Albumin/Globulin Ratio Triglycerides Cholesterol LDL Cholesterol Direct HDL Cholesterol TSH 3rd Generation Venous Blood Potassium Urine Color Urine Appearance Urine pH Ur Specific [place] Urine Protein Urine Glucose (UA) Urine Ketones Urine Blood Urine Nitrate Urine Bilirubin Urine Urobilinogen Ur Leukocyte Esterase Urine RBC Urine WBC Ur Epithelial Cells Urine Bacteria Urine Other Urine Opiates Screen Urine Methadone Screen Ur Barbiturates Screen Ur Phencyclidine Scrn Ur Amphetamines Screen U Benzodiazepines Scrn U Oth Cocaine Metabols U Cannabinoids Screen Alcohol, Quantitative 04/13/17 04/13/17 04/13/17 05:30 06:00 06:00 WBC 12.4 H D RBC 3.52 Hgb 11.4 L D Hct 33.4 L MCV 94.9 MCH 32.4 MCHC 34.1 RDW 11.9 Plt Count 205 MPV 10.3 Gran % 72.1 H Lymph % (Auto) 21.9 L Jenkins % (Auto) 5.3 Eos % (Auto) 0.5 L Baso % (Auto) 0.2 Gran # 8.91 H Lymph # 2.7 Jenkins # 0.7 H Eos # 0.1 Baso # 0.02 pO2 VBG pH VBG pCO2 VBG HCO3 VBG Total CO2 VBG O2 Sat (Calc) VBG Base Excess VBG Potassium Sodium 141 Chloride 109 H Glucose Lactate FiO2 Potassium 3.5 L Carbon Dioxide 25 Anion Gap 11 BUN 16 Creatinine 0.9 Est GFR ( Amer) > 60 Est GFR (Non-Af Amer) > 60 POC Glucose (mg/dL) Random Glucose 61 L Lactic Acid Calcium 8.5 Phosphorus 2.5 Magnesium 2.2 Total Bilirubin 0.6 AST 31 ALT 36 Alkaline Phosphatase 102 Total Protein 6.0 Albumin 3.2 Globulin 2.8 Albumin/Globulin Ratio 1.1 Triglycerides 93 Cholesterol 111 L LDL Cholesterol Direct 38 HDL Cholesterol 50 TSH 3rd Generation 2.17 Venous Blood Potassium Urine Color Urine Appearance Urine pH Ur Specific [place] Urine Protein Urine Glucose (UA) Urine Ketones Urine Blood Urine Nitrate Urine Bilirubin Urine Urobilinogen Ur Leukocyte Esterase Urine RBC Urine WBC Ur Epithelial Cells Urine Bacteria Urine Other Urine Opiates Screen Urine Methadone Screen Ur Barbiturates Screen Ur Phencyclidine Scrn Ur Amphetamines Screen U Benzodiazepines Scrn U Oth Cocaine Metabols U Cannabinoids Screen Alcohol, Quantitative 04/13/17 04/13/17 04/13/17 06:01 07:04 08:07 WBC RBC Hgb Hct MCV MCH MCHC RDW Plt Count MPV Gran % Lymph % (Auto) Jenkins % (Auto) Eos % (Auto) Baso % (Auto) Gran # Lymph # Jenkins # Eos # Baso # pO2 VBG pH VBG pCO2 VBG HCO3 VBG Total CO2 VBG O2 Sat (Calc) VBG Base Excess VBG Potassium Sodium Chloride Glucose Lactate FiO2 Potassium Carbon Dioxide Anion Gap BUN Creatinine Est GFR ( Amer) Est GFR (Non-Af Amer) POC Glucose (mg/dL) 57 L 131 H 92 Random Glucose Lactic Acid Calcium Phosphorus Magnesium Total Bilirubin AST ALT Alkaline Phosphatase Total Protein Albumin Globulin Albumin/Globulin Ratio Triglycerides Cholesterol LDL Cholesterol Direct HDL Cholesterol TSH 3rd Generation Venous Blood Potassium Urine Color Urine Appearance Urine pH Ur Specific [place] Urine Protein Urine Glucose (UA) Urine Ketones Urine Blood Urine Nitrate Urine Bilirubin Urine Urobilinogen Ur Leukocyte Esterase Urine RBC Urine WBC Ur Epithelial Cells Urine Bacteria Urine Other Urine Opiates Screen Urine Methadone Screen Ur Barbiturates Screen Ur Phencyclidine Scrn Ur Amphetamines Screen U Benzodiazepines Scrn U Oth Cocaine Metabols U Cannabinoids Screen Alcohol, Quantitative Assessment & Plan - Assessment and Plan (Free Text) Plan: Assessment Systemic Inflammatory Response syndrome, consider due to diabetic ketoacidosis in this patient with DM type 1 Probable acute pahryngitis Trichomonas in the urine R/O other sexually transmitted illnesses Plan Patient has been started on Rocephin and Flagyl and will continue this; follow up blood and urine cx, follow up pharyngeal swab for Strep, GC, get urine GC and RPR and HIV tests as well; will also get hepatitis profile will monitor clinically
--- NOTE | 2017-04-13 10:39 | CP.PCM.PN ---
<FREDRICK ANTUNEZ - Last Filed: 04/13/17 12:45> Subjective - Date & Time of Evaluation Date of Evaluation: 04/13/17 Time of Evaluation: 07:30 - Subjective Subjective: Fredrick Antunez DO PGY1 - ICU Progress Note Patient seen and examined at bedside. Nurse reports that overnight, patient became hypoglycemic, once requiring an ampule of D50, after receiving 100u levemir last night. Today, patient is awake and alert, lying comfortably in bed. He is complaining of odynophagia, but denies dyspnea or dysphonia. Denies F /C, no longer nauseous or vomiting, denies LOMELI, CP, SOB, abdominal pain, cough. Throat is not painful when speaking or breathing quietly, only when swallowing. He also denies dysuria, pelvic pain, urethral discharge, pruritis. Objective - Vital Signs/Intake and Output Vital Signs (last 24 hours): Temp Pulse Resp BP Pulse Ox 98.7 F 59 L 14 112/66 100 04/13/17 05:00 04/13/17 08:00 04/13/17 08:00 04/13/17 07:00 04/13/17 08:00 - Medications Medications: Current Medications Al Hydrox/Mg Hydrox/Simethicone (Maalox Plus 30 Ml) 30 ml PO Q4H PRN PRN Reason: Indigestion / Heartburn Last Admin: 04/13/17 05:00 Dose: 30 ml Benzocaine/Menthol (Cepacol Sore Throat) 1 aftab MT Q2H PRN PRN Reason: Sore Throat Last Admin: 04/13/17 09:12 Dose: 1 aftab Benzonatate (Tessalon Perles) 100 mg PO TID YENNY Last Admin: 04/13/17 09:19 Dose: 100 mg Metronidazole (Flagyl) 500 mg in 100 mls @ 100 mls/hr IVPB Q8 YENNY PRN Reason: Protocol Last Admin: 04/13/17 05:01 Dose: 100 mls/hr Ceftriaxone Sodium (Rocephin 1 Gram Ivpb) 1 gm in 100 mls @ 100 mls/hr IVPB 1700 YENNY Last Admin: 04/12/17 17:22 Dose: 100 mls/hr Dextrose/Sodium Chloride (Dextrose 5%/0.9% Ns 1000 Ml) 1,000 mls @ 100 mls/hr IV .Q10H [facility] Last Admin: 04/13/17 07:42 Dose: 100 mls/hr Insulin Detemir (Levemir) 20 unit SC HS [facility] Insulin Human Lispro (Humalog Low) 0 units SC ACHS [facility] PRN Reason: Protocol Last Admin: 04/13/17 08:00 Dose: Not Given Insulin Human Lispro (Humalog) 8 units SC AC [facility] Last Admin: 04/13/17 08:00 Dose: Not Given Pantoprazole Sodium (Protonix Inj) 40 mg IVP DAILY [facility] Last Admin: 04/13/17 09:12 Dose: 40 mg - Labs Labs: 04/13/17 05:30 04/13/17 06:00 - Constitutional Appears: Non-toxic, No Acute Distress - Head Exam Head Exam: ATRAUMATIC, NORMOCEPHALIC - Eye Exam Eye Exam: EOMI, PERRL - ENT Exam ENT Exam: Mucous Membranes Moist Additional comments: Erythematous and edematous uvula. No oropharyngeal exudate - Neck Exam Neck Exam: absent: Lymphadenopathy, Thyromegaly - Respiratory Exam Respiratory Exam: Clear to Ausculation Bilateral. absent: Rales, Rhonchi, Wheezes - Cardiovascular Exam Cardiovascular Exam: RRR, +S1, +S2 - GI/Abdominal Exam GI & Abdominal Exam: Soft. absent: Firm, Guarding, Rigid, Tenderness - Neurological Exam Neurological Exam: Alert, Awake, CN II-XII Intact, Oriented x3 Neuro motor strength exam: Left Upper Extremity: 5, Right Upper Extremity: 5, Left Lower Extremity: 5, Right Lower Extremity: 5 - Psychiatric Exam Psychiatric exam: Normal Affect, Normal Mood - Skin Skin Exam: Dry, Intact, Normal Color Assessment and Plan - Assessment and Plan (Free Text) Assessment: 36 yo M with PMH of type 1 DM, with DKA and SIRS with elevated lactate, and incidentally found to have trichomoniasis. On empiric and therapeutic abx. Anion gap now closed, off insulin drip. Will likely transfer out of ICU today Plan: Neuro: - AAOx3, mentating normally, no longer lethargic or stuperous - Continue to monitor CV: - Hemodynamically stable, RRR - On D5NS @100cc/hr - Maintain MAP>65 Pulm: - Lungs CTA b/l - CXR in ED showed no active disease - Maintain pO2>60, O2 sat>90% GI: - Tolerating PO, on carb consistent diet - Abd US negative for GB disease - No longer having diarrhea - Protonix for PPx Renal: - Monitor and replete lytes as needed - On D5NS@100cc/hr - Maintain euvolemia Endo: - H/o DM1, presented in DKA, anion gap now closed with BG <250 - Required 47U insulin in 5 hours last night, so given 100U levemir after anion gap closed, but became hypoglycemic overnight - On Levimir 20U HS, Humalog 8U AC, and SSI low - Accucheck Q6 and ACHS - Endocrine (Cam) on consult, all recs appreciated - Maintain euglycemia Hem/Onc: - H/H stable, no active bleed - Continue to monitor ID: - Afebrile, persistent but downtrending leucocytosis - No longer meets SIRS criteria. UA significant for trichomonas, but unlikely to be source of leukocytosis. RUQ US negative for GB disease. - BCx pending, UCx pending. Ordered HIV, RPR, gonorrhea, and chlamydia to evaluate for other STDs, as well as throat swap for rapid strep antigen to r/o streptococcal pharyngitis - On rocephin and flagyl (d2) - ID (Rao) on consult, all recs appreciated Ppx: Protonix for GI, Heparin for DVT Patient seen, discussed, and reviewed with attending <Bigg HUDSON,Refugio Joy - Last Filed: 04/13/17 13:48> Objective - Vital Signs/Intake and Output Vital Signs (last 24 hours): Temp Pulse Resp BP Pulse Ox 98.4 F 66 14 130/86 100 04/13/17 12:00 04/13/17 13:00 04/13/17 13:00 04/13/17 13:00 04/13/17 13:00 - Medications Medications: Current Medications Al Hydrox/Mg Hydrox/Simethicone (Maalox Plus 30 Ml) 30 ml PO Q4H PRN PRN Reason: Indigestion / Heartburn Last Admin: 04/13/17 05:00 Dose: 30 ml Benzocaine/Menthol (Cepacol Sore Throat) 1 aftab MT Q2H PRN PRN Reason: Sore Throat Last Admin: 04/13/17 09:12 Dose: 1 aftab Heparin Sodium (Porcine) (Heparin) 5,000 units SC Q12 YENNY PRN Reason: Protocol Metronidazole (Flagyl) 500 mg in 100 mls @ 100 mls/hr IVPB Q8 YENNY PRN Reason: Protocol Last Admin: 04/13/17 05:01 Dose: 100 mls/hr Ceftriaxone Sodium (Rocephin 1 Gram Ivpb) 1 gm in 100 mls @ 100 mls/hr IVPB 1700 YENNY Last Admin: 04/12/17 17:22 Dose: 100 mls/hr Dextrose/Sodium Chloride (Dextrose 5%/0.9% Ns 1000 Ml) 1,000 mls @ 100 mls/hr IV .Q10H [facility] Last Admin: 04/13/17 07:42 Dose: 100 mls/hr Insulin Detemir (Levemir) 20 unit SC HS [facility] Insulin Human Lispro (Humalog Low) 0 units SC ACHS [facility] PRN Reason: Protocol Last Admin: 04/13/17 11:43 Dose: Not Given Insulin Human Lispro (Humalog) 8 units SC AC [facility] Last Admin: 04/13/17 11:44 Dose: Not Given Pantoprazole Sodium (Protonix Inj) 40 mg IVP DAILY [facility] Last Admin: 04/13/17 09:12 Dose: 40 mg - Labs Labs: 04/13/17 05:30 04/13/17 06:00 Attending/Attestation - Attestation I have personally seen and examined this patient.: Yes I have fully participated in the care of the patient.: Yes I have reviewed all pertinent clinical information, including history, physical exam and plan: Yes Notes (Text): 04/13/17 13:46 36 y/o M w/ Resolved DKA Off insulin drip and on Levimir adjusted lowered dose due to hypoglycemia overnight. RISS coverage as well to keep BS 140-160 Elevated WBC without source, on empiric abx and cx pending. Diet resumed , no further vomiting noted. Endocrine consult pending. cc time 55 min
--- NOTE | 2017-04-13 12:35 | PN ---
DATE: 04/12/2017 SUBJECTIVE: I saw him yesterday comfortably in the intensive care unit. He slept fairly well. He had no chest pain. No shortness of breath or abdominal pain. He is hungry. He is in good spirits. He came in because he did not take his insulin for a day or two and he ended up in DKA with high blood sugars over 600. He is on dextrose, Flagyl, insulin, Levemir, MiraLAX, Protonix, Rocephin, and Tessalon Perles. PHYSICAL EXAMINATION: VITAL SIGNS: 98.7 temperature, 79 pulse, 103/65 blood pressure, 20 respiratory rate, and 99% O2 sat on room air. HEENT: Head is atraumatic and normocephalic. HEART: Regular rate. LUNGS: Clear to auscultation. ABDOMEN: Soft and nontender. Positive bowel sounds. No guarding. No rebound. No CVA tenderness. EXTREMITIES: No edema. LABORATORY DATA: He has 12.4 white count coming down nicely, 11.4 hemoglobin, 30.4 hematocrit, and 205 platelets. Sodium 141 and potassium 3.5, I will give him some potassium today. BUN is 16 and creatinine 0.9. GFR is greater than 60. Sugar is 61 and 57 and 80. Calcium is 8.5, phosphorus is 2.5, and magnesium is 2.2. Total bili is 0.6, AST is 31, ALT is 36 and alk phos is 102. Total protein 6. Albumin is 3.2. Globulin is 2.8. Cholesterol is 111. Triglycerides are 93. TSH is 2.17. Urine is showing moderate bacteria, Trichomonas. He definitely has a urinary tract infection that is positive for marijuana. 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 There are adjustment in medications for his diabetes, vigorous IV hydration and education. I will call in infectious disease, Dr. Anthony to give his counsellors on changing to p.o. antibiotics from IV Flagyl. We will see may be one more day in the intensive care unit versus being discharged to telemetry, we will see he is definitely improving and may be discharged in the next 1 or 2 days. I will continue aggressive treatment and care of Volodymyr Dooley. We will see him for DKA, diabetes, and UTI. Guero Gupta DO [facility] # [id number] BE[facility]
[2017-04-13] MEDS: cefTRIAXone 1 gm in NS 100ml IVPB SCH (17:50)
[2017-04-13] MEDS ORDERED: Insulin Detemir 100 units/ml Vial (Levemir) SC SCH (22:00)
--- NOTE | 2017-04-13 22:18 | PN ---
ENDO FOLLOWUP NOTE DATE: LOCATION: U 128, room 6. SUBJECTIVE: This is a 36-year-old male with recent uncontrolled type 1 insulin-dependent diabetes, presenting here with diabetic ketoacidosis and dehydration and as receiving intensive insulin therapy and because IV hydration as noted overnight. However, the patient was given the very high dose of Levemir as a 100 units at bedtime by the medical staff with supervening, unexpected hypoglycemic reactions overnight and today as noted. Also evident with the so called neuroglycopenic, and hyperadrenergic manifestation of symptomatic hypoglycemia as noted. The latest glucose values today have ranged from 57 to 61 and 125 mg/dL. The latest chemistry showed BUN of 16, sodium 141, potassium 3.5, chloride 109, CO2 of 25, glucose 61, and creatinine 0.9. So, at this time, we will continue the modified basal and bolus insulin regimen as give with Levemir given as 20 units subq at bedtime daily to start tonight. We will also continue the Humalog given as 8 unit subq t.i.d. before meals to start at dinner time today as ordered. We will continue the low-dose correction scale using Humalog insulin as given. We will follow and advise accordingly. We will continue also vigorous IV hydration as given to optimize his fluid and electrolyte losses as noted. We will follow. Lizy Mustafa MD
[2017-04-14] MEDS ORDERED: Pantoprazole 40 mg EC Tab PO SCH (06:00)
[2017-04-14] MEDS: Dextrose 5%/0.9% NS 1,000 ML IV SCH (06:15)
[2017-04-14] MEDS: metroNIDAZOLE IV 500 mg/100 ml 500 MG/100 ML BAG IVPB SCH (06:18)
[2017-04-14 06:25] LABS: HEMATOCRIT 34.6 % (42.0-52.0); MEAN CELL VOLUME 96.6 fl (80.0-105.0); MEAN CORPUSCULAR HEMOGLOBIN 32.7 pg (25.0-35.0); MEAN CORPUSCULAR HGB CONC 33.8 g/dl (31.0-37.0); MEAN PLATELET VOLUME 10.1 fl (7.0-11.0); RED CELL DISTRIBUTION WIDTH 11.8 % (11.5-14.5)
[2017-04-14 06:45] LABS: ALB/GLOB RATIO 1.1 (1.1-1.8); ALKALINE PHOSPHATASE 93 U/L (38-133); ALT/SGPT 35 U/L (7-56); AST/SGOT 40 U/L (15-59); BLOOD UREA NITROGEN 12 mg/dL (7-21); CALCIUM 8.7 mg/dL (8.4-10.5); CARBON DIOXIDE 26 mmol/L (21-33); CHLORIDE 107 mmol/L (98-107); GFR AFRICAN-AMERICAN > 60; GLUCOSE,RANDOM 166 mg/dL (70-110); POTASSIUM 3.8 mmol/L (3.6-5.0); SODIUM 140 mmol/L (132-148); TOTAL PROTEIN 5.7 g/dL (5.8-8.3)
[2017-04-14 06:55] VITALS: BP 140/82
[2017-04-14] MEDS: Insulin Lispro (humaLOG) LOW Coverage SC SCH (08:02)
[2017-04-14] MEDS: Insulin Lispro 1 UNITS/0.01 ML SC SCH (08:03)
[2017-04-14 08:38] VITALS: PULSE 68; RESP 16; TEMP 98.6
--- NOTE | 2017-04-15 02:38 | PN ---
DATE: ENDO FOLLOWUP NOTE LOCATION: In the room 128 CCU. This is a 36-year-old male with recent uncontrolled type 1 insulin-dependent diabetes, presenting here with diabetic ketoacidosis and dehydration and is now being followed closely for metabolic management. His glycemic levels are fluctuating, but much improved at this time. As noted, the latest chemistry shows BUN of 12, sodium 140, potassium 3.8, chloride 107, CO2 of 26, glucose 166 and creatinine 0.8. He is scheduled for discharge today, so would recommend a much higher insulin regimen as his oral intake has improved accordingly. Would recommend to resume his home insulin regimen with Lantus to be given at 40 units subcu at bedtime daily as ordered. He was also recommended Humalog given as 20 units subcu t.i.d. before meals as given. We will titrate incremental as indicated to optimize metabolic control. He will follow with his medical doctor for outpatient diabetic and medical management. We will follow. Lizy Mustafa MD
--- NOTE | 2017-04-15 03:27 | DS ---
HISTORY OF PRESENT ILLNESS: He is desperately asking to be discharged today. We could not get him out of the intensive care unit yesterday due to no beds in telemetry, but he is comfortable. He is feeling better. He is going back to his resizer operator and I understand that he will do that in the next 2 or 3 days. He was here for DKA, urinary tract infection, multiple sexual partners and he is . PHYSICAL EXAMINATION: VITAL SIGNS: He has 98 temperature, 70 pulse, 140/82 blood pressure, 18 respiratory rate. HEENT: Head is atraumatic and normocephalic. HEART: Regular rate. LUNGS: Clear to auscultation. ABDOMEN: Soft. EXTREMITIES: No edema. ASSESSMENT AND PLAN: He is going to go home on Flagyl 500 mg t.i.d. for 7 days, doxycycline 100 mg b.i.d. for 7 days, Humalog insulin 8 units subcutaneous a.c., Levemir 20 units at nighttime, Protonix 40 mg daily. He will follow up with his resizer operator. He was here for diabetic ketoacidosis in the intensive care unit, diabetes, urinary tract infection, multiple sexual partners and sexually transmitted disease, and he had a blood sugar of over 600. Hopefully he will not forget to take his insulin anymore. He must follow up with his resizer operator in the next 3 days. Guero Gupta DO
== END 2017-04-14 08:39 | disposition home or self-care (01) | DRG 295 ==
LOC: ED 12:25 → ERH 13:48 → CCU 15:47
PROVIDERS: ADMIT Family Medicine; ATTEND Family Medicine
DX: E10.10 Type 1 diabetes mellitus with ketoacidosis without coma (principal); E10.649 Type 1 diabetes mellitus with hypoglycemia without coma; E86.0 Dehydration; I10 Essential (primary) hypertension; N39.0 Urinary tract infection, site not specified; A59.09 Other urogenital trichomoniasis; F17.210 Nicotine dependence, cigarettes, uncomplicated; E78.5 Hyperlipidemia, unspecified; F12.90 Cannabis use, unspecified, uncomplicated; Z79.4 Long term (current) use of insulin; Z83.3 Family history of diabetes mellitus